=== PATIENT | female | born 1995 | race Caucasian/White ===

== ENCOUNTER → 2018-08-20 10:34 | Outpatient (CLI) | payer BC, SELFPAY ==
[2018-08-20 12:10] LABS: T4 (Thyroxine) 6.2 ug/dl (4.7-13.3); Thyroid Stimulating Hormone 2.66 uIU/ml (0.358-3.740); Triiodothryronine (T3) Uptake 32 % (31-39)
[2018-08-21 07:15] LABS: Prolactin 14.4 ng/mL (4.8-23.3)
[2018-08-21 12:59] LABS: Estradiol 23.9 pg/mL (.); FSH 5.4 mIU/mL (.); LH 15.6 mIU/mL (.); Triiodothyronine (T3) Free 3.3 pg/mL (2.0-4.4)
== END ==
PROVIDERS: Visit Provider Nurse Practitioner Obstetrics & Gynecology
DX: N92.6 Irregular menstruation, unspecified (principal)
CPT/HCPCS: 36415; 82670; 83001; 83002; 84146; 84436; 84443; 84479; 84481

== ENCOUNTER 2020-02-26 15:06 | Emergency (ER) | payer BC, SELFPAY ==
[2020-02-26 15:24] VITALS: BP 132/87; PULSE 88; RESP 16; TEMP 36.7; O2SAT 98; BMI 29.0
--- NOTE | 2020-02-26 15:45 | HMH.EDUTC ---
[facility] [place] Clinical Impression: Exposure to COVID-19 virus Disposition: Home, Self-Care Condition on Discharge: Good Instructions: Preventing the Spread of Coronavirus Discharge Instructions Additional Instructions: Drink plenty of fluids. Take tylenol or ibuprofen for pain or fever. Take the medications as directed. Follow up with your regular doctor. GO TO THE ER FOR ANY WORSENING SYMPTOMS FOLLOW THE DIRECTIONS ON THE COVID-19 HAND OUT THAT WE GAVE YOU REGARDING SELF-ISOLATION UNTIL YOU KNOW YOUR COVID-19 RESULTS Referrals: Lazaro Ibrahim MD [Primary Care Provider] - Forms: Work/School Release Time of Disposition: 16:01 Medical Decision Making - Medical Records Medical records reviewed: No: I reviewed the patient's medical records. - Bart Inquiry Pt receiving controlled substance: No Vital Signs: 02/26/20 15:24 02/26/20 16:19 Temperature 98.1 F 98.1 F Temperature Source Oral Oral Pulse Rate 88 Pulse Rate [Right] 88 Respiratory Rate 16 16 Blood Pressure 132/87 Blood Pressure [Right Arm] 132/87 Blood Pressure Mean [Right Arm] 102 Blood Pressure Source [Right Arm] Automatic Cuff Blood Pressure Position Sitting Blood Pressure Position [Right Arm] Sitting 02 Sat by Pulse Oximetry 98 Oxygen Delivery Method Room Air Room Air [facility] [place] - General Stated complaint: covid test Time Seen by Provider: 02/26/20 15:45 Mode of Arrival: Ambulatory Source of Information: Patient Limitations: No Limitations Description of Symptoms (Recalled from Triage Doc. by RN): Pt exposed to covid and wants tested HEENT Symptoms (Recalled from RN notes): No Resp Symptoms (Recalled from RN notes): No Skin Symptoms (Recalled from RN notes): No MS Symptoms (Recalled from RN notes): No Functional Status (Recalled from RN notes): na - History of Present Illness Provider Complaint: She reports that she has been exposed to COVID-19 thru one of her coworkers. She denies any symptoms. - Related Data Previous Rx's Medication Instructions Recorded sertraline 25 mg tablet 25 mg PO DAILY #30 tab 11/25/18 clomiphene citrate 50 mg tablet 100 mg PO DAILY 5 Days #10 tab 03/04/19 medroxyprogesterone 10 mg tablet 10 mg PO DAILY #10 tab 08/05/19 Allergies Allergy/AdvReac Type Severity Reaction Status Date / Time sulfamethoxazole Allergy Mild Verified 08/05/19 11:45 [From Bactrim] trimethoprim [From Bactrim] Allergy Mild Verified 08/05/19 11:45 - Worker's Comp Is this a Worker's Comp case?: No [facility] History - Hepatitis A Screen Drug use history?: No High risk sexual behaviors?: No History of sexually transmitted infection?: No Currently employed?: No Childcare worker?: No Do you have indoor plumbing?: Yes Do you have electricity?: Yes Attestation statement:: This patient has been screened for Hepatitis A risk factors. I have reviewed the patient's past medical history: Yes Medical History: Reports:: Anxiety, Depression Amputation: No Fractures: No Comment: wisdom - Social History Smoking Status: Current some day smoker Alcohol Intake: current Alcohol Intake Frequency:: holidays/special occasions only Substance Use Type: denies use Occupational Status: employed - Psychiatric History Pschychiatric History:: Reports:: Anxiety, Depression Family Hx:: No significant family history ROS Obtained: Yes All systems reviewed & no additional complaints - Constitutional Constitutional: Denies chills, Denies fever(s), Denies poor appetite, Denies malaise - Eyes Eyes: Denies eye discharge - ENT Ears, Nose, Mouth, and Throat: Denies dizziness, Denies otalgia, Denies sore throat - Cardiovascular Cardiovascular: Denies chest pain - Respiratory Respiratory: No chest congestion, No cough Physical Exam - General General appearance: alert, in no apparent distress - Head Head exam: atraumatic, normocephalic, normal inspection - Eye Eye exam: Present: normal appear
[2020-02-26 16:19] VITALS: BP 132/87; PULSE 88; RESP 16; TEMP 36.7; O2SAT 98
--- NOTE | 2020-02-26 19:45 | PC.NURSE ---
Positive result called to Ladan in [facility]
--- NOTE | 2020-02-26 19:51 | PC.NURSE ---
Patient notified of positive results and educated on quarantine.
== END 2020-02-26 16:20 | disposition home or self-care (01) ==
PROVIDERS: Emergency Provider Nurse Practitioner Family; PCP Internal Medicine Adolescent Medicine
DX: Z20.828 Contact with and (suspected) exposure to other viral communicable diseases (principal); F41.8 Other specified anxiety disorders; Z88.2 Allergy status to sulfonamides
CPT/HCPCS: 99201; U0003

== ENCOUNTER → 2020-06-22 14:51 | Outpatient (CLI) | payer BC, SELFPAY ==
--- NOTE | 2020-06-22 14:51 | US_ITS ---
PROCEDURE: US TRANSVAGINAL CLINICAL INDICATION: irregular periods/ menstrual cycles Infertility COMPARISON: No exams were available for comparison FINDINGS: UTERUS: 7cm x 4cmx 3cm with a combined endometrial thickness of 2.7mm LEFT OVARY: [id number] with a volume of 14.2ml. RIGHT OVARY: [id number] with a volume of 13.4ml. There are numerous follicles within both ovaries which are enlarged. IMPRESSION: Enlarged ovaries with numerous follicles consistent polycystic ovaries Dictated by: Brooks Rutledge MD 06/22/2020 17:16 Brooks Rutledge MD in [place] 06/22/2020 17:16
== END ==
PROVIDERS: PCP Internal Medicine Adolescent Medicine; Visit Provider Nurse Practitioner Obstetrics & Gynecology
DX: N92.6 Irregular menstruation, unspecified (principal)
CPT/HCPCS: 76830

== ENCOUNTER → 2021-05-17 08:55 | Outpatient (CLI) | payer BC, SELFPAY ==
[2021-05-17 09:52] LABS: Basophils # 0.1 K/mm3 (0-0.2); Basophils % 0.9 % (0.1-2.0); Eosinophils % 0.7 % (0.1-12.0); Hemoglobin 14.8 g/dL (12.2-16.2); Lymphocytes # 2.5 K/mm3 (0.7-4.5); Lymphocytes % 43.8 % (10-50); Mean Corpuscular HGB Conc 33.7 g/dL (31.8-35.4); Mean Corpuscular Hemoglobin 30.3 pg (27.0-31.2); Mean Corpuscular Volume 89.9 fl (81-99); Mean Platelet Volume 8.5 fl (7.4-10.4); Monocytes # 0.3 K/mm3 (0.1-1.0); Monocytes % 5.4 % (1.7-9.3); Neutrophils # 2.8 K/mm3 (1.8-7.8); Neutrophils % 49.2 % (37.0-80.0); Platelet Count 243 K/mm3 (142-424); Red Blood Count 4.89 M/mm3 (4.20-5.40); Red Cell Distribution Width 13.6 % (11.5-17.5); White Blood Count 5.7 K/mm3 (4.8-10.8)
[2021-05-17 10:50] LABS: Chloride 103 mmol/L (98-107); Potassium 3.9 mmoL/L (3.5-5.1); Sodium 140 mmol/L (136-145)
[2021-05-17 10:53] LABS: Alanine Aminotransferase 15 U/L (12-78); Albumin Level 4.4 g/dl (3.5-5.0); Albumin/Globulin Ratio 1.5 (1.1-1.8); Alkaline Phosphatase 50 U/L (38-126); Anion Gap 13.9 mEq/L (5-15); Aspartate Amino Transferase 22 U/L (14-36); Bilirubin,Total 0.5 mg/dl (0.2-1.3); Blood Urea Nitrogen 8 mg/dl (7-17); Calcium 9.1 mg/dl (8.4-10.2); Carbon Dioxide 27 mmol/L (22.0-30.0); Estimated Glomerular Filt Rate 100 ml/min (>60); GFR (African American) 121 ML/MIN (>60); Globulin 2.9 g/dL (1.3-3.2); Glucose 75 mg/dl (74-100); Total Protein,Serum 7.3 g/dl (6.3-8.2)
[2021-05-17 11:43] LABS: Thyroid Stimulating Hormone 2.37 uIU/mL (0.465-4.68)
[2021-05-18 09:12] LABS: Prolactin 8.7 ng/mL (4.8-23.3); Testosterone,Total 47 ng/dL (13-71)
== END ==
PROVIDERS: Visit Provider Specialist
DX: E28.2 Polycystic ovarian syndrome (principal); Z01.83 Encounter for blood typing
CPT/HCPCS: 36415; 80053; 82626; 83498; 84146; 84403; 84443; 85025; 86900; 86901

== ENCOUNTER → 2021-07-15 11:22 | Outpatient (CLI) | payer BC, SELFPAY ==
[2021-07-16 10:25] LABS: Progesterone 0.2 ng/mL (.)
== END ==
PROVIDERS: Visit Provider Specialist
DX: Z31.41 Encounter for fertility testing (principal)
CPT/HCPCS: 36415; 84144

== ENCOUNTER → 2021-09-13 09:14 | Outpatient (CLI) | payer BC, SELFPAY ==
[2021-09-14 09:05] LABS: Progesterone 0.5 ng/mL (.)
== END ==
PROVIDERS: Visit Provider Obstetrics & Gynecology
DX: N97.0 Female infertility associated with anovulation (principal)
CPT/HCPCS: 36415; 84144

== ENCOUNTER 2024-01-21 09:45 | Outpatient (CLI) | payer OTHER, SELFPAY ==
[2024-01-21 10:06] LABS: Basophils % 0.5 % (0.1-2.0); Eosinophils # 0.1 K/mm3 (0.0-0.4); Eosinophils % 2.3 % (0.1-12.0); Hematocrit 41.9 % (37.0-47.0); Hemoglobin 14.6 g/dL (12.2-16.2); Lymphocytes # 1.8 K/mm3 (0.7-4.5); Lymphocytes % 29.9 % (10-50); Mean Corpuscular HGB Conc 34.8 g/dL (31.8-35.4); Mean Corpuscular Hemoglobin 31.5 pg (27.0-31.2); Mean Corpuscular Volume 90.5 fl (81-99); Mean Platelet Volume 7.9 fl (7.4-10.4); Monocytes # 0.4 K/mm3 (0.1-1.0); Neutrophils # 3.6 K/mm3 (1.8-7.8); Neutrophils % 61.3 % (37.0-80.0); Platelet Count 264 K/mm3 (142-424); Red Blood Count 4.63 M/mm3 (4.20-5.40); Red Cell Distribution Width 13.5 % (11.5-17.5); White Blood Count 5.9 K/mm3 (4.8-10.8)
[2024-01-21 10:37] LABS: Hemoglobin A1C 6.2 % (4.0-6.0)
[2024-01-21 11:30] LABS: Chloride 108 mmol/L (98-107); Potassium 4.4 mmoL/L (3.5-5.1); Sodium 139 mmol/L (136-145)
[2024-01-21 11:33] LABS: Alanine Aminotransferase 15 U/L (12-78); Albumin Level 4.4 g/dl (3.5-5.0); Albumin/Globulin Ratio 1.6 (1.1-1.8); Alkaline Phosphatase 40 U/L (38-126); Anion Gap 9.4 mEq/L (5-15); Aspartate Amino Transferase 22 U/L (14-36); Bilirubin,Total 0.6 mg/dl (0.2-1.3); Blood Urea Nitrogen 9 mg/dl (7-17); Carbon Dioxide 26 mmol/L (22.0-30.0); Estimated Glomerular Filt Rate 84 ml/min (>60); GFR (African American) 102 ML/MIN (>60); Globulin 2.8 g/dL (1.3-3.2); Total Protein,Serum 7.2 g/dl (6.3-8.2)
[2024-01-21 11:34] LABS: Calcium 9.5 mg/dl (8.4-10.2); Glucose 83 mg/dl (74-100)
[2024-01-21 12:05] LABS: Thyroid Stimulating Hormone 1.58 uIU/mL (0.465-4.68)
[2024-01-23 09:31] LABS: Estradiol 34.4 pg/mL (.); FSH 6.1 mIU/mL (.)
[2024-01-23 14:14] LABS: Insulin Level Total 4.7 uIU/mL (2.6-24.9)
[2024-01-30 22:14] LABS: Testosterone, Total, LC/MS 42 ng/dL (.)
[2024-03-07 11:05] LABS: Anti Mullerian Hormone (AMH) 25.1
== END 2024-01-21 23:59 | disposition home or self-care (01) ==
PROVIDERS: PCP Internal Medicine Adolescent Medicine; Visit Provider Obstetrics & Gynecology
DX: E28.2 Polycystic ovarian syndrome (principal); Z31.9 Encounter for procreative management, unspecified
CPT/HCPCS: 36415; 80050; 80053; 82397; 82670; 83001; 83036; 83525; 84403; 84443; 85025